=== PATIENT | female | born 1955 | race Caucasian/White ===

== ENCOUNTER 2019-02-22 05:37 | Outpatient (CLI) | payer OTHER ==
[~2019-02-22] VITALS: Ht 157.5 cm; Wt 73.5 kg
[~2019-02-22 05:37] MED LIST: ESTR1PAT31 TD; ESTROGEN PATCH; HYDR-757 PO; NAPR-243 PO; NITR-65 PO
[2019-02-22] MEDS ORDERED: LISI-552 PO (12:36)
== END 2019-02-22 12:47 | disposition home or self-care (01) ==
LOC: PREOP 05:37
PROVIDERS: ATTEND Obstetrics & Gynecology
DX: Z01.818 Encounter for other preprocedural examination (principal)

== ENCOUNTER 2019-03-01 05:53 | Day surgery (SDC) | payer OTHER ==
[~2019-03-01] VITALS: Ht 157.5 cm; Wt 73.5 kg
[2019-03-01] VITALS (17 sets, daily range): BP systolic 93–147; BP diastolic 49–86
[~2019-03-01 05:53] MED LIST changes: +LISI-552 PO
[2019-03-01] MEDS ORDERED: ONDANSETRON 4 MG/2 ML (SDV) Z0FRAN ONE (06:49)
[2019-03-01] MEDS ORDERED: LIDOCAINE PF 2% 5 ML (XYLOCAINE) VIAL ONE (06:49)
[2019-03-01] MEDS ORDERED: fentaNYL INJECTION 100 MCG/2 ML AMP ONE (06:49)
[2019-03-01] MEDS ORDERED: DEXAMETHASONE 10 MG/ML (DECADRON) 1 ML VIAL ONE (06:49)
[2019-03-01] MEDS ORDERED: MIDAZOLAM 2 MG/2 ML (VERSED) VIAL ONE (06:49)
[2019-03-01] MEDS ORDERED: proPOfol 200 MG/20 ML (DIPRIVAN) VIAL IV ONE (06:49)
[2019-03-01 06:51] LABS: BASOPHILS % (AUTO) 1 % (0-10); EOSINOPHILS # (AUTO) 0.1 10^3/uL (0.0-0.3); EOSINOPHILS % (AUTO) 2 % (0-10); HEMATOCRIT 36 % (35-52); HEMOGLOBIN 11.7 G/DL (11.5-16.0); LYMPHOCYTES # (AUTO) 1.9 X 10^3 (1.0-4.0); LYMPHOCYTES % (AUTO) 35 % (12-44); MEAN CORPUSCULAR HEMOGLOBIN 29 PG (25-34); MEAN CORPUSCULAR HGB CONC 33 G/DL (32-36); MEAN CORPUSCULAR VOLUME 88 FL (80-99); MEAN PLATELET VOLUME 10.7 FL (7.4-10.4); MONOCYTES # (AUTO) 0.4 X 10^3 (0.0-1.0); MONOCYTES % (AUTO) 8 % (0-12); NEUTROPHILS # (AUTO) 2.9 X 10^3 (1.8-7.8); NEUTROPHILS % (AUTO) 55 % (42-75); PLATELET COUNT 248 10^3/uL (130-400); RED CELL DISTRIBUTION WIDTH 13.4 % (10.0-14.5); WHITE BLOOD COUNT 5.3 10^3/uL (4.3-11.0)
[2019-03-01] MEDS ORDERED: ESTROGENS CONJ. CREAM 30 GM (PREMARIN) TUBE ONE (06:58)
[2019-03-01] MEDS ORDERED: VASOPRESSIN INJECTION 20 UNIT/ML VIAL ONE ×2 (06:58→07:37)
[2019-03-01] MEDS ORDERED: NS (IVPB) 100 ML ONE ×2 (06:59→07:37)
--- NOTE | 2019-03-01 07:05 | Progress Note-Pre Operative ---
Pre-Operative Progress Note H&P Reviewed The H&P was reviewed, patient examined and no changes noted. Date Seen by Provider: Mar 01, 2019 Time Seen by Provider: 07:05 Date H&P Reviewed: Mar 01, 2019 Time H&P Reviewed: 07:05 Pre-Operative Diagnosis: Cystocele/ Rectocele VINCENT PIPER DO Mar 01, 2019 07:05
[2019-03-01] MEDS: LACTATED RINGERS 1,000 ML IV PRN ×2 (07:10→07:57)
[2019-03-01] MEDS ORDERED: KETOROLAC 30 MG/ML VIAL ONE (08:29)
[2019-03-01] MEDS: KETOROLAC 30 MG/ML VIAL IV SCH ×3 (08:35→20:03)
[2019-03-01] MEDS ORDERED: morphine INJ 10 MG/ML 1ML (SYR OR VIAL) ONE (08:43)
[2019-03-01] MEDS ORDERED: SEVOFLURANE (ULTANE) 15 ML INHAL SOLN ONE (08:51)
[2019-03-01] MEDS ORDERED: HYDR-4226 PO (08:53)
[2019-03-01] MEDS ORDERED: IBUP-1773 PO (08:53)
[2019-03-01] MEDS ORDERED: DOCU-143 PO (08:53)
--- NOTE | 2019-03-01 08:55 | Discharge Inst-Women's Service ---
Discharge Inst-Women's Serv Depart Medication/Instructions New, Converted or Re-Newed RX: RX on Chart Problems Reviewed?: Yes Consults/Follow Up Additional Follow Up: Yes Orders/Referrals Dr. Piper in 6 weeks Activity Activity: Activity as Tolerated Driving Instructions: No Driving for 1 Week NO SMOKING: NO SMOKING Nothing Inside Vagina: No Douching, No Encampment, No Tampons Diet Discharge Diet: No Restrictions Symptoms to Report to : Bleeding Excessive, Pain Increased, Fever Over 101 Degrees F, Vaginal Bleeding Increase, Questions/Concerns For Any Problems or Questions: Contact Your Physician Skin/Wound Care Bathing Instructions: Shower (for 3 weeks) VINCENT PIPER DO Mar 01, 2019 08:55
[2019-03-01] MEDS ORDERED: ONDANSETRON 4 MG/2 ML (SDV) Z0FRAN IVP PRN (09:00)
[2019-03-01] MEDS ORDERED: HYDROmorphone 2 MG/ML VIAL (DILAUDID) IV PRN (09:00)
[2019-03-01] MEDS ORDERED: morphine INJ 10 MG/ML 1ML (SYR OR VIAL) IVP ONE (09:00)
[2019-03-01] MEDS ORDERED: HYDROmorphone 2 MG/ML VIAL (DILAUDID) IV ONE (09:00)
[2019-03-01] MEDS ORDERED: HYDROcodone/APAP 5 MG/325 MG (LORTAB) TAB PO PRN (09:00)
--- NOTE | 2019-03-01 09:40 | NUR ---
CROW QUINN admitted to room 3306-1 VIA PT BED ACC BY MARIO BRITT SALVAGE MACHINE OPERATOR AFTER AN ANTERIOR AND POSTERIOR COLPORRHAPHY TODAY BY DR. PIPER. PT VERY DROWSY. PLACED ON O2 @2L/M/NC BY SALVAGE MACHINE OPERATOR. VSS. QUINNCROW Boaz introduced to surroundings, call light, bed controls, phone, TV, temperature control, lights, meal times, smoking policy, visitor policy, side rail policy, bathrooms and showers. Patient Rights given to patient in the handbook.
--- NOTE | 2019-03-01 10:00 | NUR ---
IV PLACED ON PUMP. SITE CLEAR. PT VERY DROWSY. VSS. O2 @2//M/NC R/T DROWSY STATE.
--- NOTE | 2019-03-01 10:53 | NUR ---
RT NOTIFIED OF NEED FOR INCENTIVE SPIROMETRY. PT CONTINUES TO SLEEP.
--- NOTE | 2019-03-01 11:00 | NUR ---
HOURLY VS AND CONTINUOUS SPO2 MONITORING CONTINUES. VAG ALEXEY IN PLACE WITH SATURATION OF TAIL NOTED. SMALL AMOUNT OF BLEEDING AROUND PACKING ON V-PAD. O2 CONTINUES AT 2L/M/NC. GOOD URINE OUTPUT.
[2019-03-01] MEDS ORDERED: ceFAZolin INJECTION 1,000 MG in WATER (STERILE) FOR INJECTION 10 ML IV SCH (12:00)
--- NOTE | 2019-03-01 12:00 | NUR ---
VS REMAIN STABLE. DOZING AT INTERVALS. CONTINUES TO BE VERY DROWSY. CONTINUOUS SPO2 MONITORING. NO CHANGE IN BLEEDING ON VAG PAD.
--- NOTE | 2019-03-01 12:49 | Anesthesia-General Post-Op ---
General Patient Condition Mental Status/LOC: Same as Preop Cardiovascular: Satisfactory Nausea/Vomiting: Absent Respiratory: Satisfactory Pain: Controlled Complications: Absent Post Op Complications Complications None Follow Up Care/Instructions Patient Instructions None needed. Anesthesia/Patient Condition Patient Condition Patient is doing well, no complaints, stable vital signs, no apparent adverse anesthesia problems. No complications reported per nursing. ATILIO EDWARDS CRNA Mar 01, 2019 12:49
--- NOTE | 2019-03-01 13:10 | NUR ---
VSS. WHILE PREPARING TO DO PERICARE AND CHANGE PT POSITION, NOTED VAGINAL PACKING ON THE V-PAD WITH CLOTTED BLOOD ADHERED TO THE BACK AND SIDES OF IT. LARGE AMOUNT OF BLOOD ON V-PAD AND MOD AMOUNT ON CHUX. 2ND RN TO ROOM. PERICARE WITH PAD CHANGE. REPOSITIONED PT. WEIGHED PAD/CHUX/ND CLOT. 210 CC.
--- NOTE | 2019-03-01 13:30 | NUR ---
DR. PIPER NOTIFIED OF VAGINAL PACKING COMING OUT WITH CLOT AND BLEEDING. NO ACTIVE BLEEDING NOTED SINCE PERICARE. INFORMED OF VS. WILL CONTINUES TO MONITOR CLOSELY.
[2019-03-01] MEDS: LACTATED RINGERS 1,000 ML IV SCH ×2 (14:18→23:30)
--- NOTE | 2019-03-01 14:30 | NUR ---
CONTINUING TO DO HOURLY VS. AND MONITOR PAD EVERY HOUR. EATING LUNCH. MORE AWAKE AT THIS TIME. ROUTINE TORADOL GIVEN. DENIES PAIN. GOOD URINE OUTPUT SINCE ARRIVAL.
--- NOTE | 2019-03-01 15:00 | NUR ---
O2 OFF. PT CONTINUES TO EAT. VSS. NO ACTIVE BLEEDING NOTED.
--- NOTE | 2019-03-01 15:08 | OPERATIVE REPORT ---
DATE OF SERVICE: 03/01/2019 PREOPERATIVE DIAGNOSES: A 64-year-old female with grade III cystocele and rectocele. POSTOPERATIVE DIAGNOSES: A 64-year-old female with grade III cystocele and rectocele. PROCEDURE: Anterior colporrhaphy and posterior colporrhaphy. SURGEON: Vincent Piper DO ANESTHESIA: General endotracheal. ESTIMATED BLOOD LOSS: 50 mL. URINE OUTPUT: 300 mL. FLUIDS: 1200 mL of lactated Ringer's solution. FINDINGS: Grade III cystocele and rectocele, protrusion of the cystocele to the level of the introitus and with Valsalva outside of the vaginal introitus. SPECIMEN SENT: None. INDICATIONS FOR PROCEDURE: A 64-year-old female is a patient, who was seen in my office for findings of vaginal prolapse. In the office, we did attempt conservative measures in the form of pessary; however, we are unable to reduce her massive cystocele and rectocele as they were coming out together. In the office, the patient became frustrated with the pessary fitting process and was requesting surgical correction. Risk of anterior and posterior colporrhaphy were reviewed with the patient in detail including risk of bleeding, infection, damage to surrounding structures including, but not limited to the bowel and bladder, concerns for postoperative recovery time frame, concerns for postoperative complications, lifetime expectations and risk of re-breakdown were all discussed with the patient in detail. Risk from anesthesia and even were discussed. After everything was explained, the consent was obtained in the preoperative area after all of her questions were answered and the patient was then taken to the operating room. OPERATIVE REPORT IN DETAIL: Once in the operating room, anesthesia was found to be adequate. She was placed in dorsal lithotomy position, prepped and draped in normal sterile fashion. A timeout was performed. Jc catheter was placed using sterile technique. I then began the procedure by addressing the cystocele. I placed a weighted speculum in the patient's vagina. The vaginal mucosa over the urethra was grasped using a long Allis clamp. I then infiltrated the submucosa of the cystocele defect using vasopressin, a concentration of 20 units in 100 mL of normal saline. I infiltrated the entire extent and all the margins of the cystocele, blanching the pink vaginal tissue to a white. After which, I made an incision at the Allis clamp through the submucosa and undermined this dissection using Metzenbaum scissors down the midline of the cystocele defect. I then incised this tissue down the midline. I grasped the lateral margins of the incision using T clamps and dissected the underlying vesicovaginal fascia off the underlying submucosa. This was done all the way back to the margin laterally of the cystocele. This was then done on both sides of the incision. Once good vesicovaginal fascia is noted, I began with plication sutures using 0 Vicryl suture plicating the vesicovaginal fascia and reducing the cystocele down the midline. I then trimmed the excess vaginal mucosa and reapproximated the vaginal mucosa using 3-0 Vicryl suture in a running locked fashion. I then removed the weighted speculum and took my attention to the rectocele where 5 and 7 o'clock on the mucocutaneous junction, I grasped this tissue using Allis clamps. I infiltrated the margins of the submucosa of the rectocele using the same vasopressin concentration. Once this was done, I made a triangular incision down the midline of the perineal body, excising the cutaneous tissue of the perineal body. I then used this as my start for dissection down the rectocele and the posterior vaginal wall. This was taken down the midline using Metzenbaum scissors undermining the tissue and the submucosa and then incising it down the midline as well. I then bluntly dissected off the rectovaginal fascia to the lateral margins of the rectocele and trimmed the excess vaginal mucosa. I then reapproximated the mucosa and the rectovaginal fascia in one layer using 3-0 Vicryl suture in running locked fashion. I took this all the way out into the introitus at which point I reapproximated the bulbocavernosus muscles of the vagina using 2-0 Vicryl suture in a crown stitch. I then reapproximated the submucosa and the cutaneous tissue using the continuing 3-0 Vicryl suture from the posterior repair. After which, there was no active bleeding noted from any of my dissection planes. I packed the vagina using vaginal packing soaked in Premarin cream. Jc catheter was left in place. The patient tolerated the procedure well and sent to recovery in stable condition. Lap and sponge counts were correct at the end of the procedure. Instrument count was correct as well. Job ID: [id number] DocumentID: [id number] Dictated Date: 03/01/2019 09:13:59 Materials Analyst Date: 03/01/2019 15:07:38 Dictated By: VINCENT PPIER DO
--- NOTE | 2019-03-01 16:00 | NUR ---
PT TEXTING ON PHONE. VSS. DENIES PAIN. NO ACTIVE BLEEDING ON V-PAD.
--- NOTE | 2019-03-01 17:00 | NUR ---
WATCHING TV. DENIES ANY PAIN. A/O X4.
--- NOTE | 2019-03-01 18:30 | NUR ---
PERICARE WITH PAD CHANGE. SCANT BLEEDING. GOOD URINE OUTPUT. DENIES PAIN. VSS. A/O X4.
--- NOTE | 2019-03-01 22:15 | NUR ---
Pt up to bathroom r/t pressure of bowel movement, pt educated not to strain. BM noted in toilet, pt assisted back to bed. Catheter bag to stationary portion of bed frame. Blankets adjusted will cont to monitor.
--- NOTE | 2019-03-01 23:05 | NUR ---
Pt reports incontinent episode of diarrhea, bed pads changed, pt to bathroom, pt has second bm with semiformed stool. Independent deloris care, Assisted back to bed, catheter to stationary portion of bed frame. Will cont to monitor.
[2019-03-02 03:17] VITALS: BP 99/52
[2019-03-02] MEDS: KETOROLAC 30 MG/ML VIAL IV SCH (03:17)
[2019-03-02 06:43] VITALS: BP 97/39
[2019-03-02 06:44] VITALS: BP 115/56
--- NOTE | 2019-03-02 07:25 | NUR ---
DR. PIPER HERE TO SEE PT.
[2019-03-02 08:00] VITALS: BP 122/58
--- NOTE | 2019-03-02 08:00 | NUR ---
A.M. ASSESSMENT COMPLETED. VSS. SHOWER SET UP PER PT REQUEST. VOIDED A SMALL AMOUNT AND THEN 100 CC. MOVES WELL.
[2019-03-02] MEDS ORDERED: IBUPROFEN 600 MG (MOTRIN) TAB PO SCH (09:00)
--- NOTE | 2019-03-02 10:00 | NUR ---
AMBULATING IN THE [place]. VOIDING WITHOUT DIFFICULTY. PLEASANT AFFECT.
--- NOTE | 2019-03-02 11:25 | NUR ---
DISCHARGE INSTRUCTIONS REVIEWED WITH COPY TO PT. STATES UNDERSTANDING OF ALL INSTRUCTIONS AND NEED TO F/U SCHEDULED AND NEEDED.
[2019-03-02 11:30] VITALS: BP 122/58
--- NOTE | 2019-03-02 11:30 | NUR ---
DISMISSED AMB FROM [facility] IN STABLE CONDITION TO [facility] BY THIS RN WHERE DAUGHTER IS WAITING TO DRIVE HOME.
== END 2019-03-02 11:30 | disposition home or self-care (01) ==
LOC: SDC 05:53 → WS 09:40 → SDC 03-02 11:30
PROVIDERS: ATTEND Obstetrics & Gynecology
DX: N81.10 Cystocele, unspecified (principal); N81.6 Rectocele; I10 Essential (primary) hypertension; M19.90 Unspecified osteoarthritis, unspecified site; K21.9 Gastro-esophageal reflux disease without esophagitis; Z88.6 Allergy status to analgesic agent; Z79.899 Other long term (current) drug therapy; Z90.49 Acquired absence of other specified parts of digestive tract; Z80.3 Family history of malignant neoplasm of breast; Z83.3 Family history of diabetes mellitus; Z82.5 Family history of asthma and other chronic lower respiratory diseases; Z82.49 Family history of ischemic heart disease and other diseases of the circulatory system; Z84.1 Family history of disorders of kidney and ureter; Z90.710 Acquired absence of both cervix and uterus
CPT/HCPCS: 36415; 85025; 86850; 86900; 86901; 87081; 94664

== ENCOUNTER → 2020-02-20 | Outpatient (CLI) | payer MEDICARE ==
[~2020-02-20] MED LIST changes: +DOCU-143 PO; +HYDR-4226 PO; +IBUP-1773 PO
--- NOTE | 2020-02-20 16:36 | Diagnostic Imaging Report ---
EXAMINATION: CT Abdomen Pelvis without contrast. TECHNIQUE: Multiple contiguous axial images were obtained through the abdomen and pelvis without the use of intravenous contrast. All CT scans use one or more of the following dose optimizing techniques: automated exposure control, MA and/or KvP adjustment based on a patient size and exam type, or iterative reconstruction. HISTORY: RIGHT FLANK PAIN COMPARISON: 04/13/2012. FINDINGS: Limited views of the lower thorax are unremarkable. There is unchanged cyst in segment two of the liver. There is no biliary ductal dilation. Gallbladder is surgically absent. Pancreas is normal. Spleen is normal. Adrenal glands are normal. Left renal cyst is again seen. There is no hydronephrosis. Urinary bladder is normal. No renal or ureteral stones are seen. Visualized bowel is normal in caliber without obstruction or inflammation. There is diverticulosis without diverticulitis. No free fluid or air. No abdominal or pelvic lymphadenopathy. Aorta is normal in caliber without aneurysm. There are no suspicious osseus lesions. IMPRESSION: 1. No acute abnormality in the abdomen or pelvis. Dictated by: Dictated on workstation # [id number]
== END ==
LOC: RAD 14:58
DX: R10.9 Unspecified abdominal pain (principal)
CPT/HCPCS: 74176

== ENCOUNTER → 2020-10-07 | Outpatient (CLI) | payer MEDICARE ==
[~2020-10-07] MED LIST changes: -LISI-552 PO; +LISI20TA26 PO
--- NOTE | 2020-10-07 15:55 | Diagnostic Imaging Report ---
INDICATION: Postmenopausal state. COMPARISON: None available. FINDINGS: AP Spine L1-L4: [BMD (g/cm2): 0.983] [T-Score: -1.8] [Z-Score: -0.8] [BMD Previous: NA] [BMD % Change: NA] LT Hip Neck: [BMD (g/cm2): 0.745] [T-Score: -2.1] [Z-Score: -1.0] LT Hip Total: [BMD (g/cm2):0.772] [T-Score:-1.9] [Z-Score: -1.0] [BMD Previous: NA] [BMD % Change: NA] RT Hip Neck: [BMD (g/cm2):0.698] [T-Score:-2.4] [Z-Score:-1.3] RT Hip Total: [BMD (g/cm2):0.699] [T-score:-2.5] [Z-Score:-1.6] [BMD Previous:NA] [BMD % Change:NA] *Indicates significant change from prior examination based on 95% confidence level. World Health Organization criteria for BMD interpretation classify patients as Normal (T-score at or above -1.0), Osteopenic (T-score between -1.0 and -2.5) or Osteoporotic (T-score at or below -2.5). LIMITATIONS AND MODIFICATION: None. FRACTURE RISK (FRAX SCORE): The ten year probability of (%): Major Osteoporotic Fracture: [12.3] Hip Fracture: [2.5] IMPRESSION: 1. Osteoporosis. 2. Baseline examination. 3. See below National Osteoporosis Foundation guidelines on when to potentially initiate pharmacologic therapy. Based on the National Osteoporosis Foundation Guidelines, pharmacologic treatment should be initiated in any of the following, unless clinical conditions suggest otherwise: * Any patient with prior fragility fracture of the hip or vertebrae. A spine fracture indicates 5X risk for subsequent spine fracture and 2X risk for subsequent hip fracture. * Osteoporosis (T-score <-2.5). * Postmenopausal women and men age 50 and older with low bone mass/osteopenia (T-score between -1.0 and -2.5) by DXA and 10-year major osteoporotic fracture greater than 20% or a 10-year probability of hip fracture greater than 3%. These fracture risks are supplied above in the FRAX score, if applicable. * Clinician judgement and/or patient preferences may indicate treatment for people with 10-year fracture probabilities above or below these levels. Dictated by: Dictated on workstation # [id number]
== END ==
LOC: RAD 13:10
PROVIDERS: ATTEND Family Medicine
DX: M81.0 Age-related osteoporosis without current pathological fracture (principal); Z78.0 Asymptomatic menopausal state
CPT/HCPCS: 77080

== ENCOUNTER → 2020-11-10 | Outpatient (CLI) | payer MEDICARE ==
--- NOTE | 2020-11-10 12:12 | Diagnostic Imaging Report ---
INDICATION: Routine screening. Comparison is made to prior mammogram 10/08/2015 and 09/02/2014. 2-D and 3-D bilateral screening mammography was performed with CAD. Both breasts are heterogeneously dense, limiting the sensitivity of mammography. Rounded densities in both breasts are again noted likely owing to cyst. There is a new region of architectural distortion in the slightly upper left breast at anterior depth. There are also associated malignant appearing microcalcifications. This is highly concerning for breast neoplasm. Additional views are recommended. There is a biopsy clip in the right breast. There are scattered benign calcifications present. Axillae are unremarkable. IMPRESSION: Architectural distortion and microcalcifications in the upper left breast anterior depth. These are concerning for neoplasm. Additional views and ultrasound are recommended for further evaluation. BI-RADS 0 ACR BI-RADS Category 0: Incomplete. (Needs additional imaging evaluation). Result letter will be mailed to the patient. Note: At least 10% of breast cancer is not imaged by mammography. Dictated by: Dictated on workstation # [id number]
== END ==
LOC: RAD 10:15
PROVIDERS: ATTEND Family Medicine
DX: Z12.31 Encounter for screening mammogram for malignant neoplasm of breast (principal)
CPT/HCPCS: 77063; 77067

== ENCOUNTER → 2020-11-20 | Outpatient (CLI) | payer MEDICARE ==
--- NOTE | 2020-11-20 13:47 | Diagnostic Imaging Report ---
INDICATION: Left breast architectural distortion. Patient presents for additional views. COMPARISON: Correlation is made with the recent screening study from 11/10/2020. TECHNIQUE: Unilateral left 2D and 3D diagnostic mammography was performed. This included spot compression CC and ML views as well as conventional 90 degree lateral views. FINDINGS: There is a persistent area of architectural distortion in the upper left breast at approximately the 12 to 1 o'clock location 5 cm from the nipple. There are some associated microcalcifications. This is concerning for malignancy and ultrasound of this area is recommended. There are also circumscribed lesions in the inferior left breast approximately 6-7 cm from the nipple at approximately the 5 to 6 o'clock location. Ultrasound of this area is recommended as well. IMPRESSION: Architectural distortion and concerning microcalcifications in the superior left breast, as described. This is concerning for malignancy and ultrasound of this area is recommended. Ultrasound of the circumscribed densities in the inferior left breast is recommended as well. Ultrasound will be performed today. ACR BI-RADS Category 0: Incomplete. (Needs additional imaging evaluation). Result letter will be mailed to the patient. Note: At least 10% of breast cancer is not imaged by mammography. Dictated by: Dictated on workstation # [id number]
--- NOTE | 2020-11-20 15:29 | Diagnostic Imaging Report ---
INDICATION: Left breast architectural distortion. COMPARISON: Correlation is made with diagnostic mammogram the earlier same day and screening mammogram from 11/10/2020. EXAMINATION: Sonographic Interrogation of the upper left breast. FINDINGS: There is an irregular hypoechoic solid mass at the 12:00 location, 5 cm from the nipple, measuring 17 mm x 16 mm x 17 mm. This demonstrates posterior acoustic shadowing likely accounting for the area of architectural distortion noted mammographically. At the 4:00 location of the left breast, 2 cm and 6 cm from the nipple, there are cysts. Cyst 2 cm from the nipple measures approximate 8 mm in diameter. Cyst 6 cm from the nipple measures approximately 12 mm. No other abnormality is identified. IMPRESSION: Irregular hypoechoic solid mass at the 12:00 location of the left breast, 5 cm from the nipple, concerning for breast malignancy. Tissue sampling is recommended. This would be amenable to ultrasound-guided core biopsy. ACR BI-RADS Category 4: Suspicious abnormality. Result letter will be mailed to the patient. Note: At least 10% of breast cancer is not imaged by mammography. Dictated by: Dictated on workstation # [id number]
== END ==
LOC: RAD 13:15
PROVIDERS: ATTEND Family Medicine
DX: N63.20 Unspecified lump in the left breast, unspecified quadrant (principal)
CPT/HCPCS: 76642; 77065; G0279

== ENCOUNTER → 2020-11-24 | Outpatient (CLI) | payer MEDICARE ==
[~2020-11-24] VITALS: Ht 154.9 cm; Wt 81.8 kg
[~2020-11-24] MED LIST changes: +LIDOCAINE 1% INJ 20 ML 20 ML VIAL INJ ONE
--- NOTE | 2020-11-24 12:15 | Diagnostic Imaging Report ---
INDICATION: Left breast architectural distortion and mass. Patient presents for ultrasound-guided biopsy. DETAILS OF THE PROCEDURE: The patient was brought to the sonographic suite and placed on the table in the supine position. Ultrasound imaging of the left breast was performed to evaluate for an appropriate entry site. The left breast was then prepped and draped in the usual sterile fashion. A small amount of 1% lidocaine was utilized for local anesthesia. A total of 3 core biopsies was made of the irregular hypoechoic solid mass at the 12 o'clock location of the left breast 5 cm from the nipple utilizing a 14-gauge Achieve needle. A marker clip was then deployed. Hemostasis was obtained using manual compression. The patient tolerated the procedure well and left the Department in stable condition. IMPRESSION: Successful ultrasound guided core biopsy of the irregular hypoechoic mass at the 12 o'clock location of the left breast. Pathology results are currently pending. Dictated by: Dictated on workstation # [id number]
--- NOTE | 2020-11-24 15:23 | Diagnostic Imaging Report ---
INDICATION: Left breast mass. Patient is status post ultrasound-guided biopsy. TECHNIQUE: Unilateral left 2D CC and ML mammography was performed post ultrasound guided biopsy. Images demonstrate a marker clip just lateral and superior to the architectural distortion at the 12 o'clock location of the left breast. IMPRESSION: Post biopsy left breast mass. Dictated by: Dictated on workstation # [id number]
== END ==
LOC: RAD 11:00
PROVIDERS: ATTEND Family Medicine
DX: N63.20 Unspecified lump in the left breast, unspecified quadrant (principal); Z98.890 Other specified postprocedural states
CPT/HCPCS: 19083; 77065; A4648; G0279

== ENCOUNTER 2021-01-14 14:44 | Outpatient (RCR) | payer MEDICARE ==
[2020-12-24 14:38] LABS: BASOPHILS % (AUTO) 1 % (0-10); EOSINOPHILS # (AUTO) 0.1 10^3/uL (0.0-0.3); EOSINOPHILS % (AUTO) 2 % (0-10); HEMATOCRIT 36 % (35-52); HEMOGLOBIN 11.8 g/dL (11.5-16.0); LYMPHOCYTES # (AUTO) 1.8 X 10^3 (1.0-4.0); LYMPHOCYTES % (AUTO) 29 % (12-44); MEAN CORPUSCULAR HEMOGLOBIN 29 pg (25-34); MEAN CORPUSCULAR HGB CONC 33 g/dL (32-36); MEAN CORPUSCULAR VOLUME 87 fL (80-99); MEAN PLATELET VOLUME 10.1 fL (9.0-12.2); MONOCYTES # (AUTO) 0.4 X 10^3 (0.0-1.0); MONOCYTES % (AUTO) 7 % (0-12); NEUTROPHILS # (AUTO) 3.7 X 10^3 (1.8-7.8); NEUTROPHILS % (AUTO) 61 % (42-75); PLATELET COUNT 269 10^3/uL (130-400); WHITE BLOOD COUNT 6.1 10^3/uL (4.3-11.0)
[2020-12-24 15:00] LABS: ALANINE AMINOTRANSFERASE 12 U/L (0-55); ALKALINE PHOSPHATASE 77 U/L (40-136); BILIRUBIN,TOTAL 0.4 MG/DL (0.1-1.0); BUN/CREATININE RATIO 21; CALCIUM 9.4 MG/DL (8.5-10.1); CARBON DIOXIDE 26 MMOL/L (21-32); CHLORIDE 107 MMOL/L (98-107); CREATININE SERUM 0.78 MG/DL (0.60-1.30); GFR ESTIMATED > 60; GLUCOSE 94 MG/DL (70-105); POTASSIUM 4.1 MMOL/L (3.6-5.0); SODIUM 139 MMOL/L (135-145); TOTAL PROTEIN 7.2 GM/DL (6.4-8.2)
[~2021-01-14 14:44] MED LIST changes: -LIDOCAINE 1% INJ 20 ML 20 ML VIAL INJ ONE
[2021-01-14 15:01] LABS: BASOPHILS % (AUTO) 1 % (0-10); EOSINOPHILS # (AUTO) 0.1 10^3/uL (0.0-0.3); EOSINOPHILS % (AUTO) 1 % (0-10); HEMATOCRIT 37 % (35-52); HEMOGLOBIN 12.3 g/dL (11.5-16.0); LYMPHOCYTES # (AUTO) 1.7 X 10^3 (1.0-4.0); LYMPHOCYTES % (AUTO) 27 % (12-44); MEAN CORPUSCULAR HEMOGLOBIN 29 pg (25-34); MEAN CORPUSCULAR HGB CONC 33 g/dL (32-36); MEAN CORPUSCULAR VOLUME 87 fL (80-99); MEAN PLATELET VOLUME 10.3 fL (9.0-12.2); MONOCYTES # (AUTO) 0.5 X 10^3 (0.0-1.0); MONOCYTES % (AUTO) 7 % (0-12); NEUTROPHILS # (AUTO) 4.1 X 10^3 (1.8-7.8); NEUTROPHILS % (AUTO) 64 % (42-75); PLATELET COUNT 256 10^3/uL (130-400); WHITE BLOOD COUNT 6.4 10^3/uL (4.3-11.0)
[2021-01-14 15:18] LABS: ALANINE AMINOTRANSFERASE 14 U/L (0-55); ALBUMIN 4.1 GM/DL (3.2-4.5); ALKALINE PHOSPHATASE 97 U/L (40-136); BILIRUBIN,TOTAL 0.4 MG/DL (0.1-1.0); BUN/CREATININE RATIO 18; CARBON DIOXIDE 27 MMOL/L (21-32); CHLORIDE 105 MMOL/L (98-107); CREATININE SERUM 0.79 MG/DL (0.60-1.30); GFR ESTIMATED > 60; GLUCOSE 95 MG/DL (70-105); SODIUM 140 MMOL/L (135-145); TOTAL PROTEIN 7.7 GM/DL (6.4-8.2)
== END 2021-03-03 | disposition home or self-care (01) ==
LOC: ONC 14:44
PROVIDERS: ATTEND Internal Medicine Hematology & Oncology
DX: C50.812 Malignant neoplasm of overlapping sites of left female breast (principal); M19.90 Unspecified osteoarthritis, unspecified site; Z90.710 Acquired absence of both cervix and uterus; Z87.448 Personal history of other diseases of urinary system; Z79.890 Hormone replacement therapy; Z79.899 Other long term (current) drug therapy; Z17.0 Estrogen receptor positive status [ER+]
CPT/HCPCS: 80053; 85025; 99213; 99214

== ENCOUNTER → 2021-03-18 | Outpatient (CLI) | payer MEDICARE ==
--- NOTE | 2021-03-18 14:20 | Diagnostic Imaging Report ---
INDICATION: Left breast carcinoma, on tamoxifen therapy. COMPARISON: 11/10/2020 and 10/08/2015. TECHNIQUE: Unilateral left 2D and 3D diagnostic mammography was performed with CAD. FINDINGS: The left breast remains heterogeneously dense, limiting sensitivity of mammography. The area of architectural distortion and spiculation in the superior left breast approximately 5 cm from the nipple appears similar. There are associated suspicious microcalcifications present. There is a new circumscribed nodule in the lower outer left breast approximately 5 cm from the nipple, presumably a cyst. The patient does have a fibronodular parenchymal pattern. Scattered benign calcifications are noted. IMPRESSION: Stable appearance to the area of architectural distortion in the superior left breast, consistent with known malignancy. This will be further evaluated with ultrasound today. In addition, there is a new circumscribed nodule in the lower outer left breast 5 cm from the nipple, presumably a new cyst. This will be evaluated with ultrasound as well. ACR BI-RADS Category 0: Incomplete. (Needs additional imaging evaluation). Result letter will be mailed to the patient. Note: At least 10% of breast cancer is not imaged by mammography. Dictated by: Dictated on workstation # [id number]
--- NOTE | 2021-03-18 14:37 | Diagnostic Imaging Report ---
INDICATION: Left breast carcinoma. This study is performed for followup. COMPARISON: Correlation is made with the diagnostic mammogram from earlier today as well as a prior left breast ultrasound from 11/20/2020. FINDINGS: The previously noted breast carcinoma at the 12 o'clock location 6 cm from the nipple is again noted. The hypoechoic irregular mass measures 1.7 x 1.4 x 1.3 cm, very similar in size to the prior exam. There is a simple appearing cyst at the 4 o'clock location 5 cm from the nipple measuring 10 mm in diameter, correlating with the mammographic finding. No new solid mass is detected. IMPRESSION: 1. Stable known breast malignancy at the 12 o'clock location when compared with the prior study from 11/20/2020. 2. Simple cyst at the 4 o'clock location corresponding to the mammographic density. ACR BI-RADS Category 6: Known biopsy proven malignancy. Result letter will be mailed to the patient. Note: At least 10% of breast cancer is not imaged by mammography. Dictated by: Dictated on workstation # [id number]
== END ==
LOC: RAD 12:45
PROVIDERS: ATTEND Internal Medicine Hematology & Oncology
DX: C50.912 Malignant neoplasm of unspecified site of left female breast (principal)
CPT/HCPCS: 76642; 77065; G0279

== ENCOUNTER 2021-04-09 05:38 | Outpatient (CLI) | payer MEDICARE ==
[~2021-04-09] VITALS: Ht 154.9 cm; Wt 85.9 kg
[2021-04-09] MEDS ORDERED: LISI10TA25 PO (12:09)
[2021-04-09] MEDS ORDERED: ANAS1TAB50 PO (12:10)
== END 2021-04-09 12:30 ==
LOC: PREOP 05:38
PROVIDERS: ATTEND Surgery
DX: Z01.818 Encounter for other preprocedural examination (principal)

== ENCOUNTER 2021-04-16 06:02 | Day surgery (SDC) | payer MEDICARE ==
[2021-04-16] VITALS (10 sets, daily range): BP systolic 99–130; BP diastolic 54–90
[~2021-04-16] VITALS: Ht 154 cm; Wt 85.9 kg
[~2021-04-16 06:02] MED LIST changes: +ANAS1TAB50 PO; +LISI10TA25 PO
[2021-04-16] MEDS ORDERED: ceFAZolin 2 GM IV Premixed 50 ML IV ONE (07:00)
[2021-04-16] MEDS ORDERED: LIDOCAINE/EPI 1%-1:100,000 (XYLOCAINE) 20ML ONE (07:09)
[2021-04-16] MEDS ORDERED: METHYLENE BLUE 0.5% (PROVAYBLUE) 50 mg/10 ml vial IV ONE (07:09)
--- NOTE | 2021-04-16 07:56 | Progress Note-Pre Operative ---
Pre-Operative Progress Note H&P Reviewed The H&P was reviewed, patient examined and no changes noted. Date Seen by Provider: Apr 16, 2021 Time Seen by Provider: 07:56 Date H&P Reviewed: Apr 16, 2021 Time H&P Reviewed: 07:56 Pre-Operative Diagnosis: infiltrating ductal carcinoma left breast WALKER BOSE DO Apr 16, 2021 07:56
[2021-04-16] MEDS ORDERED: LIDOCAINE PF 2% 5 ML (XYLOCAINE) VIAL ONE (08:10)
[2021-04-16] MEDS ORDERED: MIDAZOLAM 2 MG/2 ML (VERSED) VIAL ONE (08:10)
[2021-04-16] MEDS ORDERED: BUPIVACAINE 0.25% 30 ML (SENSORCAINE) VIAL ONE (08:10)
[2021-04-16] MEDS ORDERED: ONDANSETRON 4 MG/2 ML (SDV) Z0FRAN ONE (08:10)
[2021-04-16] MEDS ORDERED: fentaNYL INJ 100 MCG/2 ML AMP ONE (08:10)
[2021-04-16] MEDS ORDERED: proPOfol 200 MG/20 ML (DIPRIVAN) VIAL IV ONE (08:10)
[2021-04-16] MEDS: LACTATED RINGERS 1,000 ML IV PRN ×2 (09:08→09:40)
--- NOTE | 2021-04-16 09:17 | Diagnostic Imaging Report ---
INDICATION: Left breast cancer. Total of 1 mCi of technetium 99m sulfur colloid was injected in 4 separate aliquots in a periareolar distribution left breast. Imaging was performed. There is migration of activity into the left axilla consistent with activity in lymph nodes. This was marked on the patient's skin. Patient tolerated the procedure well and was sent to same day surgery in satisfactory condition. IMPRESSION: Left breast lymphoscintigraphy, as described. Dictated by: Dictated on workstation # [id number]
[2021-04-16] MEDS ORDERED: HYDROmorphone 2 MG/ML VIAL (DILAUDID) ONE (09:56)
[2021-04-16] MEDS ORDERED: morphine INJ 4 MG/ML 1 ML (VIAL/SYRINGE) IVP PRN (10:45)
[2021-04-16] MEDS ORDERED: ONDANSETRON 4 MG/2 ML (SDV) Z0FRAN IVP PRN ×2 (10:45→13:00)
--- NOTE | 2021-04-16 10:47 | Progress Note-Post Operative ---
Post-Operative Progess Note Surgeon (s)/Rn Or Lpn (s) Surgeon WALKER BOSE DO Rn Or Lpn: Dr. Sol Pre-Operative Diagnosis infiltrating ductal carcinoma left breast Post-Operative Diagnosis same Procedure & Operative Findings Date of Procedure 04/16/21 Procedure Performed/Findings left mastectomy c sentinel node biopsy Anesthesia Type general Estimated Blood Loss Estimated blood loss (mL): minimal Specimens/Packing Specimens Removed left breast, sentinel node WALKER BOSE DO Apr 16, 2021 10:47
[2021-04-16] MEDS ORDERED: LACTATED RINGERS 1,000 ML BAG IV SCH (11:00)
[2021-04-16] MEDS ORDERED: morphine INJ 10 MG/ML 1ML (SYR OR VIAL) IVP ONE (13:00)
[2021-04-16] MEDS ORDERED: SEVOFLURANE (ULTANE) 15 ML INHAL SOLN ONE (13:11)
[2021-04-16] MEDS: LACTATED RINGERS 1,000 ML IV SCH ×2 (14:20→20:40)
[2021-04-16] MEDS ORDERED: RT-ALBUTEROL SULF 2.5 MG/3 ML PRE-MIX VIAL INH PRN (15:30)
[2021-04-16] MEDS: ceFAZolin 2 GM IV Premixed 50 ML IV SCH (16:01)
[2021-04-16] MEDS: HYDROcodone/APAP 5 MG/325 MG (LORTAB) TAB PO PRN ×2 (16:23→22:22)
[2021-04-17 00:06] VITALS: BP 107/68
[2021-04-17] MEDS: ceFAZolin 2 GM IV Premixed 50 ML IV SCH (00:25)
[2021-04-17] MEDS: HYDROcodone/APAP 5 MG/325 MG (LORTAB) TAB PO PRN ×2 (03:20→07:34)
[2021-04-17 03:51] VITALS: BP 99/62
[2021-04-17] MEDS: LACTATED RINGERS 1,000 ML IV SCH (05:07)
[2021-04-17 08:00] VITALS: BP 116/59
[2021-04-17] MEDS ORDERED: lisINopril 10 MG (PRINIVIL) TABLET PO SCH (09:00)
--- NOTE | 2021-04-17 09:32 | Anesthesia-General Post-Op ---
General Patient Condition Mental Status/LOC: Same as Preop Cardiovascular: Satisfactory Nausea/Vomiting: Absent Respiratory: Satisfactory Pain: Controlled Complications: Absent Post Op Complications Complications None Follow Up Care/Instructions Patient Instructions None needed. Anesthesia/Patient Condition Patient Condition Patient is doing well, no complaints, stable vital signs, no apparent adverse anesthesia problems. No complications reported per nursing. ATILIO EDWARDS CRNA Apr 17, 2021 09:32
[2021-04-17] MEDS ORDERED: DOCU-143 PO (09:44)
[2021-04-17] MEDS ORDERED: ACHD5005 PO (09:44)
--- NOTE | 2021-04-17 09:49 | Discharge Inst-Simple/Standard ---
Discharge Inst-Standard Discharge Medications New, Converted or Re-Newed RX: Transmitted to Pharmacy Patient Instructions/Follow Up Plan of Care/Instructions/FU: 2 weeks Gibran Keep track of drains individual drainage per 24 hour period. When a drain has less than 30 mL in 24 hours. Notify the office of which drain it is and then have it removed the next day. When the other drain is less than 30 mL in 24 hours have that one removed. Both drains will not be removed on the same day. Activity as Tolerated: No Discharge Diet: Regular Diet Other Inst to Patient Follow up Appt: Make appointment for 2 week. Instructions: No lifting greater than 10 pounds. Keep dressing on and change daily. Wrap for comfort. No strenuous activity. May shower, no tub bath or soaking. Use incentive spirometer at home as directed. No Smoking Keep track of drains individual drainage per 24 hour period. When a drain has less than 30 mL in 24 hours. Notify the office of which drain it is and then have it removed the next day. When the other drain is less than 30 mL in 24 hours have that one removed. Both drains will not be removed on the same day. Skin/Wound Care: You have special glue over your incision that will fall off on it's own. Symptoms to Report: Appetite Changes, Extremity Discoloration, Numbness/Tingling, Swelling Increased, Bleeding Excessive, Eyesight Changes, Pain Increased, Urine Color Change, Constipation(Persistent), Fever over 101 degree F, Pain/Pressure in chest, Urinating Difficulty, Cough Up/Vomit Blood, Heart Beat Irreg/Pounding, Pain/Pressure in jaw, Vaginal Bleeding Increase, Cramps in feet or legs, Lightheadedness, Pain/Pressure in shoulder, Diarrhea(Persistent), Memory Changes Suddenly, Questions/Concerns, Weight gain consecutive days, Dizziness/Fainting, Nausea/Vomiting, Shortness of Breath, Weight gain over 2 pounds If questions or concerns contact your physician Or seek help at emergency department. WALKER BOSE DO Apr 17, 2021 09:49
--- NOTE | 2021-04-17 09:52 | Progress Note - Surgery ---
Subjective Date Seen by a Provider: Apr 17, 2021 Time Seen by a Provider: 09:50 Subjective/Events-last exam Feeling well. Pain controlled. Drains serosang. Wanting to go home. Using IS. Denies n/v fever sweats chills shortness of breath or chest pain. Objective Exam Vital Signs Date Time Temp Pulse Resp B/P (MAP) Pulse Ox O2 Delivery O2 Flow Rate FiO2 04/17/21 08:00 36.8 57 20 116/59 (78) 96 Room Air 04/17/21 03:51 36.0 55 17 99/62 (74) 95 Room Air 04/17/21 00:06 36.6 63 18 107/68 (81) 93 Room Air 04/16/21 20:00 36.7 75 18 99/54 (69) 94 Room Air 04/16/21 19:45 Room Air 04/16/21 16:45 36.9 67 18 119/73 (88) 95 Room Air 04/16/21 15:24 35.7 82 95 04/16/21 12:00 35.7 82 17 128/62 (84) 95 Room Air 04/16/21 11:40 94 Room Air 04/16/21 11:40 Room Air 04/16/21 11:30 36.2 12 130/90 (103) 94 Room Air 04/16/21 11:20 16 117/60 (79) 99 OxyMask 10 04/16/21 11:15 OxyMask 10 04/16/21 11:10 14 121/59 (79) 99 OxyMask 10 04/16/21 11:00 12 117/64 (81) 98 OxyMask 10 04/16/21 10:56 OxyMask 10 04/16/21 10:56 36.5 12 114/63 (80) 97 OxyMask 10 I & O 04/17/21 07:00 Intake Total 2470 ml Output Total 2185 ml Balance 285 ml Capillary Refill : General Appearance: No Apparent Distress, WD/WN HEENT: PERRL/EOMI, Normal ENT Inspection Neck: Full Range of Motion, Non Tender, Supple Respiratory: No Accessory Muscle Use, No Respiratory Distress, Other (left incisional tenderness c/d/i no signs of infection) Cardiovascular: Regular Rate, Rhythm, No JVD Gastrointestinal: non tender, soft Extremity: Normal Inspection, Non Tender Neurologic/Psychiatric: Alert, Oriented x3 Skin: Normal Color, Warm/Dry Lymphatic: No Adenopathy Results Lab Microbiology 04/16/21 MRSA Screen - Final, Complete MRSA not isolated Assessment/Plan Assessment/Plan Assessment/Plan left breast cancer s/p left mastectomy c sentinel node biopsy plan pain control oral diet as tolerates drain instructions discussed dc home. Final Diagnosis left breast cancer s/p left mastectomy c sentinel node biopsy WALKER BOSE DO Apr 17, 2021 09:52
[2021-04-17 10:30] VITALS: BP 116/59
--- NOTE | 2021-04-18 01:02 | OPERATIVE REPORT ---
DATE OF SERVICE: 04/16/2021 PREOPERATIVE DIAGNOSIS: Left breast cancer. POSTOPERATIVE DIAGNOSIS: Left breast cancer. PROCEDURE: Left mastectomy with sentinel node biopsy. SURGEON: Walker Leary DO MASSOTHERAPIST: Dr. Sol, assisted in retraction, dissection and closure. ANESTHESIA: General. ESTIMATED BLOOD LOSS: Minimal. COMPLICATIONS: None. INDICATIONS: The patient is a 66-year-old female with left breast cancer. She understands risks and benefits of procedure and wished to proceed with procedure. Consent was signed in the chart. DESCRIPTION OF PROCEDURE: The patient was taken to the operating suite. She was prepped and draped in sterile fashion. The patient was taken to the operating suite. She was prepped in a sterile fashion. A 4 mL of methylene blue were injected around the nipple line and massaged for 10 minutes for lymphatic sentinel node could be performed. After this was performed, the patient was reprepped and draped in a sterile fashion. Timeout was performed again. An elliptical incision was made around the nipple and areolar complex from the medial portion of the breast to the lateral portion. Cautery was then used to make superior and inferior skin flap, removing breast tissue once at the borders of the sternum medially, superior the clavicle, inferior the inframammary fold and laterally latissimus dorsi. The breast was then dissected from the chest wall from medial to lateral fashion removing the pectoral fascia. Prior to complete removal lateral aspect, the [place] counter was then used to isolate the sentinel node, which was purple and had counts of 33,000. This node was then dissected out and removed. There was a 10-second count of 88,888. No other nodes were within 10 percent of this area and no other nodes are palpable or visualized. The breast was then removed and tagged with the long suture lateral, short suture superior and two sutures deep margin. The wound was then irrigated with copious amounts of irrigation of sterile water. Hemostasis was achieved. Two 19 Michael drains were placed through 2 stab incisions on the inferior border of the inferior flap. These were sutured in with 3-0 nylon. The 3-0 Vicryl was then used to approximate the skin flaps and then the subcutaneous layer. The skin was then closed using 4-0 Monocryl in a running subcuticular fashion. The area was then washed and dried and Skin Affix was placed over the incisions. Sterile bandages were then applied. The patient tolerated procedure well without any complications. She was taken to recovery room in stable condition. CC: [facility] - requested, unable to deliver Job ID: [id number] DocumentID: [id number] Dictated Date: 04/17/2021 19:16:25 Cellulose Insulation Helper Date: 04/18/2021 01:01:17 Dictated By: WALKER LEARY DO
== END 2021-04-17 10:30 | disposition home or self-care (01) ==
LOC: UNDOADMIN 06:02 → 4TH 06:02 → SDC 06:02 → 4TH 06:02 → SURG 06:03 → EDSTATUS 08:00 → 4TH 12:00 → SURG 12:00 → UNDODISIN 04-17 10:30 → SDC 04-17 10:30
PROVIDERS: ATTEND Surgery
DX: C50.912 Malignant neoplasm of unspecified site of left female breast (principal); I10 Essential (primary) hypertension; Z79.899 Other long term (current) drug therapy
CPT/HCPCS: 19301; 38525; 78195; 87081; 88307; 88342; A9541

== ENCOUNTER 2021-05-14 14:56 | Outpatient (RCR) | payer MEDICARE, OTHER ==
[~2021-05-14 14:56] MED LIST changes: +ACHD5005 PO
[2021-05-14 15:05] LABS: BASOPHILS % (AUTO) 1 % (0-10); EOSINOPHILS # (AUTO) 0.1 10^3/uL (0.0-0.3); EOSINOPHILS % (AUTO) 2 % (0-10); HEMATOCRIT 38 % (35-52); HEMOGLOBIN 12.7 g/dL (11.5-16.0); LYMPHOCYTES # (AUTO) 1.6 10^3/uL (1.0-4.0); LYMPHOCYTES % (AUTO) 29 % (12-44); MEAN CORPUSCULAR HEMOGLOBIN 30 pg (25-34); MEAN CORPUSCULAR HGB CONC 33 g/dL (32-36); MEAN CORPUSCULAR VOLUME 90 fL (80-99); MEAN PLATELET VOLUME 10.5 fL (9.0-12.2); MONOCYTES # (AUTO) 0.4 10^3/uL (0.0-1.0); MONOCYTES % (AUTO) 8 % (0-12); NEUTROPHILS # (AUTO) 3.3 10^3/uL (1.8-7.8); NEUTROPHILS % (AUTO) 60 % (42-75); PLATELET COUNT 268 10^3/uL (130-400); WHITE BLOOD COUNT 5.6 10^3/uL (4.3-11.0)
[2021-05-14 15:25] LABS: ALBUMIN 4.2 GM/DL (3.2-4.5); BILIRUBIN,TOTAL 0.5 MG/DL (0.1-1.0); CALCIUM 9.7 MG/DL (8.5-10.1); CREATININE SERUM 0.8 MG/DL (0.60-1.30); TOTAL PROTEIN 7.6 GM/DL (6.4-8.2)
== END 2021-06-23 | disposition home or self-care (01) ==
LOC: ONC 14:56
PROVIDERS: ATTEND Internal Medicine Hematology & Oncology
DX: C50.812 Malignant neoplasm of overlapping sites of left female breast (principal); M19.90 Unspecified osteoarthritis, unspecified site; E66.9 Obesity, unspecified; Z90.710 Acquired absence of both cervix and uterus; Z87.448 Personal history of other diseases of urinary system
CPT/HCPCS: 80053; 85025; 99213

== ENCOUNTER → 2021-10-29 | Outpatient (RCR) | payer MEDICARE ==
[2021-10-29 15:06] LABS: BASOPHILS % (AUTO) 1 % (0-10); EOSINOPHILS # (AUTO) 0.1 10^3/uL (0.0-0.3); EOSINOPHILS % (AUTO) 1 % (0-10); HEMATOCRIT 40 % (35-52); HEMOGLOBIN 13.2 g/dL (11.5-16.0); LYMPHOCYTES # (AUTO) 1.7 10^3/uL (1.0-4.0); LYMPHOCYTES % (AUTO) 28 % (12-44); MEAN CORPUSCULAR HEMOGLOBIN 30 pg (25-34); MEAN CORPUSCULAR HGB CONC 33 g/dL (32-36); MEAN CORPUSCULAR VOLUME 91 fL (80-99); MEAN PLATELET VOLUME 9.9 fL (9.0-12.2); MONOCYTES # (AUTO) 0.4 10^3/uL (0.0-1.0); MONOCYTES % (AUTO) 7 % (0-12); NEUTROPHILS # (AUTO) 3.9 10^3/uL (1.8-7.8); NEUTROPHILS % (AUTO) 63 % (42-75); PLATELET COUNT 289 10^3/uL (130-400); WHITE BLOOD COUNT 6.2 10^3/uL (4.3-11.0)
[2021-10-29 16:51] LABS: ALBUMIN 4.2 GM/DL (3.2-4.5)
[2021-10-29 16:53] LABS: CALCIUM 9.7 MG/DL (8.5-10.1)
[2021-10-29 16:54] LABS: TOTAL PROTEIN 7.9 GM/DL (6.4-8.2)
[2021-10-29 16:56] LABS: BILIRUBIN,TOTAL 0.4 MG/DL (0.1-1.0)
[2021-10-29 16:57] LABS: CREATININE SERUM 0.78 MG/DL (0.60-1.30)
== END ==
LOC: ONC 14:50
PROVIDERS: ATTEND Internal Medicine Hematology & Oncology
DX: C50.812 Malignant neoplasm of overlapping sites of left female breast (principal); M19.90 Unspecified osteoarthritis, unspecified site; E66.9 Obesity, unspecified; Z90.710 Acquired absence of both cervix and uterus; Z87.448 Personal history of other diseases of urinary system
CPT/HCPCS: 80053; 85025; G0463; 36415; 99213

== ENCOUNTER → 2021-11-11 | Outpatient (CLI) | payer MEDICARE ==
--- NOTE | 2021-11-11 13:49 | Diagnostic Imaging Report ---
INDICATION: Routine screening. COMPARISON: 11/10/2020 and 10/08/2015. TECHNIQUE: Unilateral right 2D and 3D screening mammography was performed with CAD. FINDINGS: The right breast is heterogeneously dense, limiting the sensitivity of mammography. A biopsy marker clip in the outer right breast at posterior depth is again noted. Benign-appearing nodular densities in the right breast appear stable. There are benign calcifications. No spiculated mass or malignant-appearing microcalcifications are seen. The right axilla is unremarkable. IMPRESSION: No mammographic features suspicious for malignancy are identified. ACR BI-RADS Category 2: Benign findings. Result letter will be mailed to the patient. Note: At least 10% of breast cancer is not imaged by mammography. Dictated by: Dictated on workstation # [id number]
== END ==
LOC: RAD 11:00
PROVIDERS: ATTEND Internal Medicine Hematology & Oncology
DX: Z12.31 Encounter for screening mammogram for malignant neoplasm of breast (principal)
CPT/HCPCS: 77063

== ENCOUNTER 2021-12-23 14:47 | Outpatient (RCR) | payer MEDICARE | END 2021-12-29 | disposition home or self-care (01) | LOC: ONC 14:47 | PROVIDERS: ATTEND Internal Medicine Hematology & Oncology | DX: C50.812 Malignant neoplasm of overlapping sites of left female breast (principal); E66.9 Obesity, unspecified; M19.90 Unspecified osteoarthritis, unspecified site; Z90.12 Acquired absence of left breast and nipple; Z90.710 Acquired absence of both cervix and uterus; Z87.448 Personal history of other diseases of urinary system | CPT/HCPCS: 99213 ==

== ENCOUNTER 2022-06-23 09:57 | Outpatient (RCR) | payer MEDICARE ==
[2022-06-23 10:31] LABS: BASOPHILS % (AUTO) 1 % (0-10); EOSINOPHILS # (AUTO) 0.1 10^3/uL (0.0-0.3); EOSINOPHILS % (AUTO) 2 % (0-10); HEMATOCRIT 36 % (35-52); LYMPHOCYTES # (AUTO) 1.4 10^3/uL (1.0-4.0); LYMPHOCYTES % (AUTO) 35 % (12-44); MEAN CORPUSCULAR HEMOGLOBIN 30 pg (25-34); MEAN CORPUSCULAR HGB CONC 33 g/dL (32-36); MEAN CORPUSCULAR VOLUME 91 fL (80-99); MEAN PLATELET VOLUME 9.4 fL (9.0-12.2); MONOCYTES # (AUTO) 0.3 10^3/uL (0.0-1.0); MONOCYTES % (AUTO) 9 % (0-12); NEUTROPHILS # (AUTO) 2.1 10^3/uL (1.8-7.8); NEUTROPHILS % (AUTO) 53 % (42-75); PLATELET COUNT 247 10^3/uL (130-400); WHITE BLOOD COUNT 3.9 10^3/uL (4.3-11.0)
[2022-06-23 10:52] LABS: ALBUMIN 4.1 GM/DL (3.2-4.5); BILIRUBIN,TOTAL 0.4 MG/DL (0.1-1.0); CALCIUM 9.6 MG/DL (8.5-10.1); CREATININE SERUM 0.8 MG/DL (0.60-1.30); POTASSIUM 4.2 MMOL/L (3.6-5.0); TOTAL PROTEIN 7.2 GM/DL (6.4-8.2)
== END 2022-06-30 | disposition home or self-care (01) ==
LOC: ONC 09:57
PROVIDERS: ATTEND Internal Medicine Hematology & Oncology
DX: C50.812 Malignant neoplasm of overlapping sites of left female breast (principal); E66.9 Obesity, unspecified; M19.90 Unspecified osteoarthritis, unspecified site; Z90.12 Acquired absence of left breast and nipple; Z90.710 Acquired absence of both cervix and uterus; Z87.448 Personal history of other diseases of urinary system; Z98.890 Other specified postprocedural states
CPT/HCPCS: 80053; 85025; G0463; 36415; 99213

== ENCOUNTER → 2022-11-15 | Outpatient (CLI) | payer MEDICARE, MEDICAID ==
--- NOTE | 2022-11-15 12:17 | Diagnostic Imaging Report ---
INDICATION: Routine screening. COMPARISON: 11/11/2021 and 11/10/2020. TECHNIQUE: Unilateral right 2D and 3D screening mammography was performed with CAD. FINDINGS: The right breast is heterogeneously dense, limiting the sensitivity of mammography. The nodular density in the upper central right breast is stable. The marker clip in the outer right breast is again noted. No new mass or malignant-appearing microcalcifications are seen. The right axilla is unremarkable. IMPRESSION: No mammographic features suspicious for malignancy are identified. ACR BI-RADS Category 2: Benign findings. Result letter will be mailed to the patient. Note: At least 10% of breast cancer is not imaged by mammography. Dictated by: Dictated on workstation # [id number]
== END ==
LOC: RAD 10:45
PROVIDERS: ATTEND Internal Medicine Hematology & Oncology
DX: Z12.31 Encounter for screening mammogram for malignant neoplasm of breast (principal)
CPT/HCPCS: 77063

== ENCOUNTER 2022-11-25 11:08 | Outpatient (RCR) | payer MEDICARE, MEDICAID ==
[2022-11-25 11:22] LABS: BASOPHILS % (AUTO) 1 % (0-10); EOSINOPHILS # (AUTO) 0.1 10^3/uL (0.0-0.3); EOSINOPHILS % (AUTO) 2 % (0-10); HEMATOCRIT 37 % (35-52); HEMOGLOBIN 12.1 g/dL (11.5-16.0); LYMPHOCYTES # (AUTO) 1.2 10^3/uL (1.0-4.0); LYMPHOCYTES % (AUTO) 29 % (12-44); MEAN CORPUSCULAR HEMOGLOBIN 30 pg (25-34); MEAN CORPUSCULAR HGB CONC 33 g/dL (32-36); MEAN CORPUSCULAR VOLUME 91 fL (80-99); MEAN PLATELET VOLUME 9.8 fL (9.0-12.2); MONOCYTES # (AUTO) 0.3 10^3/uL (0.0-1.0); MONOCYTES % (AUTO) 8 % (0-12); NEUTROPHILS # (AUTO) 2.6 10^3/uL (1.8-7.8); NEUTROPHILS % (AUTO) 60 % (42-75); PLATELET COUNT 254 10^3/uL (130-400); WHITE BLOOD COUNT 4.3 10^3/uL (4.3-11.0)
[2022-11-25 11:46] LABS: ALBUMIN 4.2 GM/DL (3.2-4.5); BILIRUBIN,TOTAL 0.5 MG/DL (0.1-1.0); CREATININE SERUM 0.85 MG/DL (0.60-1.30); TOTAL PROTEIN 7.6 GM/DL (6.4-8.2)
== END 2022-11-28 ==
LOC: ONC 11:08
PROVIDERS: ATTEND Internal Medicine Hematology & Oncology
DX: C50.812 Malignant neoplasm of overlapping sites of left female breast (principal); E66.9 Obesity, unspecified; M19.90 Unspecified osteoarthritis, unspecified site; Z90.12 Acquired absence of left breast and nipple; Z90.710 Acquired absence of both cervix and uterus; Z87.448 Personal history of other diseases of urinary system; Z98.890 Other specified postprocedural states
CPT/HCPCS: 36415; 80053; 85025

== ENCOUNTER 2023-03-30 05:48 | Outpatient (CLI) | payer MEDICARE, MEDICAID ==
[~2023-03-30] VITALS: Ht 154 cm; Wt 82.2 kg
[2023-04-01] MEDS ORDERED: ATOR20TA66 PO (13:22)
[2023-04-01] MEDS ORDERED: ERGO1250 PO (13:22)
[2023-04-01] MEDS ORDERED: ACET-2650 PO (13:22)
== END 2023-04-01 13:31 | disposition home or self-care (01) ==
LOC: PREOP 05:48
PROVIDERS: ATTEND Surgery
DX: Z01.818 Encounter for other preprocedural examination (principal)

== ENCOUNTER 2023-04-12 09:54 | Day surgery (SDC) | payer MEDICARE, MEDICAID ==
[~2023-04-12] VITALS: Ht 154 cm; Wt 82.2 kg
[~2023-04-12 09:54] MED LIST changes: +ACET-2650 PO; +ATOR20TA66 PO; +ERGO1250 PO
--- NOTE | 2023-04-12 10:08 | Progress Note-Pre Operative ---
Pre-Operative Progress Note Date H&P Reviewed: Apr 12, 2023 Time H&P Reviewed: 10:07 History & Physical: H&P Reviewed, Patient Examed Pre-Operative Diagnosis: Screening colonoscopy WALKER BOSE DO Apr 12, 2023 10:07
[2023-04-12] MEDS ORDERED: MIDAZOLAM INJ 2 MG/2 ML VIAL ONE (10:37)
[2023-04-12] MEDS ORDERED: LACTATED RINGERS 1,000 ML 1,000 ML IV STA (10:43)
--- NOTE | 2023-04-12 11:00 | Progress Note-Post Operative ---
Post-Operative Progess Note Surgeon (s)/Structural Steel Equipment Erector (s) Surgeon WALKER BOSE DO Structural Steel Equipment Erector: NA Pre-Operative Diagnosis Screening colonoscopy Post-Operative Diagnosis diverticulosis Procedure & Operative Findings Date of Procedure 04/12/23 Procedure Performed/Findings colonoscopy Anesthesia Type per GUN STOCKER Estimated Blood Loss Estimated blood loss (mL): none Specimens/Packing Specimens Removed none WALKER BOSE DO Apr 12, 2023 11:00
--- NOTE | 2023-04-12 11:04 | Discharge Inst-Simple/Standard ---
Discharge Inst-Standard Patient Instructions/Follow Up Plan of Care/Instructions/FU: 10 yr repeat colonoscopy unless family history of colon cancer or personal history of polyps then 5yrs. Any issues before that be seen at that time. Activity as Tolerated: Yes Discharge Diet: Regular Diet (high fiber) WALKER BOSE DO Apr 12, 2023 11:04
[2023-04-12 11:05] VITALS: BP 103/51
[2023-04-12 11:07] VITALS: BP 140/73
[2023-04-12 11:10] VITALS: BP 106/57
[2023-04-12 11:50] VITALS: BP 106/57
--- NOTE | 2023-04-12 12:06 | Anesthesia-General Post-Op ---
MAC Patient Condition Mental Status/LOC: Same as Preop Cardiovascular: Satisfactory Nausea/Vomiting: Absent Respiratory: Satisfactory Pain: Controlled Complications: Absent Post Op Complications Complications None Follow Up Care/Instructions Patient Instructions None needed. Anesthesiology Discharge Order Discharge Order Patient is doing well, no complaints, stable vital signs, no apparent adverse anesthesia problems. No complications reported per nursing. MARIANGEL WALLS CRNA Apr 12, 2023 12:06
--- NOTE | 2023-04-12 19:44 | OPERATIVE REPORT ---
DATE OF SERVICE: 04/12/2023 PREOPERATIVE DIAGNOSIS: Screening colonoscopy. POSTOPERATIVE DIAGNOSIS: Diverticulosis. PROCEDURE: Colonoscopy. SURGEON: Walker Leary DO ANESTHESIA: Per BENEFITS COUNSELOR. ESTIMATED BLOOD LOSS: None. COMPLICATIONS: None. INDICATIONS: The patient is a 68-year-old female, needing screening colonoscopy. She understands risks and benefits and wishes to proceed. Consent was signed in chart. DESCRIPTION OF PROCEDURE: The patient was taken to endoscopy suite, placed in left lateral recumbent position. Timeout was performed. Digital rectal exam was performed. No palpable polyps, masses or ulcerations. Scope was inserted in the rectum, advanced all the way to the cecum with minimal difficulty. Prep was adequate with irrigation and suction. Scope was then slowly retracted back. No polyps, masses or ulcerations in the cecum, ascending, transverse, descending and sigmoid colon. Sigmoid colon had moderate amount of diverticula. Once in the rectum, scope was retroflexed noting no other pathology. Scope was returned to its normal position, slowly withdrawn until completely removed. The patient tolerated the procedure well without complications, taken to recovery room in stable condition. RECOMMENDATIONS: The patient will repeat colonoscopy in 10 years unless family history of colon cancer, which will then be 5 years or personal history of colon polyps, which will then be 5 years. Any prior issues before that, be seen at that time. Job ID: [id number] DocumentID: [id number] Dictated Date: 04/12/2023 11:02:49 Paediatric Physiotherapist Date: 04/12/2023 19:43:00 Dictated By: WALKER LEARY DO
== END 2023-04-12 11:50 | disposition home or self-care (01) ==
LOC: ENDO 09:54
PROVIDERS: ATTEND Surgery
DX: Z12.11 Encounter for screening for malignant neoplasm of colon (principal); K57.30 Diverticulosis of large intestine without perforation or abscess without bleeding; E66.9 Obesity, unspecified; Z68.34 Body mass index [BMI] 34.0-34.9, adult

== ENCOUNTER 2023-05-27 09:58 | Outpatient (RCR) | payer MEDICARE, MEDICAID ==
[2023-05-27 10:13] LABS: BASOPHILS % (AUTO) 1 % (0-10); EOSINOPHILS # (AUTO) 0.1 10^3/uL (0.0-0.3); EOSINOPHILS % (AUTO) 2 % (0-10); HEMATOCRIT 36 % (35-52); HEMOGLOBIN 11.8 g/dL (11.5-16.0); LYMPHOCYTES # (AUTO) 1.8 10^3/uL (1.0-4.0); LYMPHOCYTES % (AUTO) 33 % (12-44); MEAN CORPUSCULAR HEMOGLOBIN 30 pg (25-34); MEAN CORPUSCULAR HGB CONC 33 g/dL (32-36); MEAN CORPUSCULAR VOLUME 93 fL (80-99); MEAN PLATELET VOLUME 10.1 fL (9.0-12.2); MONOCYTES # (AUTO) 0.5 10^3/uL (0.0-1.0); MONOCYTES % (AUTO) 9 % (0-12); NEUTROPHILS # (AUTO) 2.9 10^3/uL (1.8-7.8); NEUTROPHILS % (AUTO) 55 % (42-75); PLATELET COUNT 246 10^3/uL (130-400); WHITE BLOOD COUNT 5.3 10^3/uL (4.3-11.0)
[2023-05-27 10:32] LABS: ALBUMIN 4.2 GM/DL (3.2-4.5); BILIRUBIN,TOTAL 0.3 MG/DL (0.1-1.0); CALCIUM 9.9 MG/DL (8.5-10.1); CREATININE SERUM 0.86 MG/DL (0.60-1.30); POTASSIUM 4.6 MMOL/L (3.6-5.0); TOTAL PROTEIN 7.4 GM/DL (6.4-8.2)
== END 2023-05-31 | disposition home or self-care (01) ==
LOC: ONC 09:58
PROVIDERS: ATTEND Internal Medicine Hematology & Oncology
DX: C50.812 Malignant neoplasm of overlapping sites of left female breast (principal); E66.9 Obesity, unspecified; M19.90 Unspecified osteoarthritis, unspecified site; Z90.12 Acquired absence of left breast and nipple; Z90.710 Acquired absence of both cervix and uterus; Z87.448 Personal history of other diseases of urinary system; Z98.890 Other specified postprocedural states
CPT/HCPCS: 36415; 80053; 85025